=== PATIENT | male | born 1950 | race Caucasian/White ===

== ENCOUNTER 2020-11-06 06:25 | Day surgery (SDC) | payer SELFPAY ==
[~2020-11-06] VITALS: Ht 167.6 cm; Wt 59.0 kg
[~2020-11-06 06:25] MED LIST: KEFLEX500 MG PO; NORCO 5-325 TA1 EACH PO
--- NOTE | 2020-11-06 08:43 | NUR ---
11/06/20 0843 Malcolm Tang SHALLOW AND DEEP SUCTION USED DURING REPORT WITH COURTESY CLERK AT BEDSIDE. REORIENTING PT TO TIME AND SITUATION AT 0843.
--- NOTE | 2020-11-06 09:27 | NUR ---
0915: PT ARRIVES BACK TO UNIT ROOM 7 VIA STRETCHER. AWAKE AND ORIENTED ON ARRIVAL. ANSWERS QUESTIONS APPROPRIATELY. VSS, RESP EVEN AND UNLABORED. DENIES PAIN AND NAUSEA AT THIS TIME. DRESSING C/D/I. ICE WATER AND CRACKERS PROVIDED. POC DISCUSSED AND PT AGREEABLE. NO NEEDS VOICED AT THIS TIME. CALL LIGHT WITHIN REACH
--- NOTE | 2020-11-06 10:49 | NUR ---
PATIENT UP TO BATHROOM, VOIDED WELL. STATED " I WANT TO GET OUT OF HERE SOON I CAN". DRESSING TO RIGHT ARM C/D/I WITH ICE IN PLACE. SET PATIENT UP FOR OUTPATIENT WOUND CARE TO BE DAILY NEXT WEEK. PATIENT AGREED ON 1000 FOR DRESSING CHANGE. PROVIDED PATIENT WITH DISCHARGE INSTRUCTION, ANSWERED QUESTIONS AND CONCERNS. PATIENT AMBULATED TO FRONT, WITH STAFF. APPEARED STEADY ON FEET.
--- NOTE | 2020-11-06 15:30 | OR ---
[facility] [address] [place], [place] [address] Signed DATE OF OPERATION: 11/06/2020 SURGEON: Nba Nichole MD PREOPERATIVE DIAGNOSES: 1. 6 x 7 cm circular necrotic malodorous mass, right lateral arm. 2. History of basal cell carcinoma of right chest wall (4.5 x 16 cm, 2009). POSTOPERATIVE DIAGNOSES: 1. 6 x 7 cm circular necrotic malodorous mass, right lateral arm. 2. History of basal cell carcinoma of right chest wall (4.5 x 16 cm, 2009). PROCEDURE: Excision of right lateral arm skin lesion. ESTIMATED BLOOD LOSS: None. INDICATIONS: Kenny is a 70-year-old gentleman, who is a retired packaging manager, who lives in [place], [place]. He went to a healthcare network pricing consultant back in 2009 for a very large basal cell carcinoma over the right chest wall. I had excised that for him back in 2009. It measured 4.5 x 16 cm. He has healed up well from that surgery. He then came back to my office with a large necrotic malodorous lesion on the lateral aspect of his right arm. He currently has no primary care provider. Although, he has been accepted to a primary care provider here in town, he is yet to see him. He is planning on doing that here in a few weeks. On his arm, he has noticed that lesion for at least one year. He continues to smoke. His albumin is slightly low at 3.4. His skin is quite thin as well particularly on his forearms. In the office, I explained to Kenny there was not enough skin to bring that together primarily. This would have to be excised skin grafted. We thought we do it on the same day. However given our current findings as described above, we did not think he would take a skin graft to any significant degree. We therefore decided to excise the lesion today for clear margins and then plan on the wound care for 7-14 days. After that, we can skin graft the area and expect a much better take of the skin graft. We wound care nurses in our day surgery area just prior to surgery. I explained to Kenny the large circular incision with 1 cm margins that will hopefully be clear at pathologic review. He is aware that we may have to excise additional margin. He understands the wound care that we have described in detail. He knows there is risk to that surgery including, but not limited to bleeding, infection, scarring, change in contour of the skin as well as possible need for additional excision and skin grafting. Electronically Signed By: NBA NICHOLE MD 11/06/20 1530 PATIENT NAME: KENNY KULKARNI OPERATIVE REPORT DATE OF : 46 REPORT #: [id number] PHYSICIAN: NBA NICHOLE MD PCP: NO PRIMARY CARE PHYSICIAN REPORT IS CONFIDENTIAL AND NOT TO BE RELEASED WITHOUT AUTHORIZATION [facility] [address] [place], [place] [address] Signed He had expressed understanding and wished to proceed. PROCEDURE NOTE: I had met Kenny in the preop area. We marked the lesion appropriately. After this, he was taken to the operating room and placed in supine position under general endotracheal tube anesthesia. He was given preoperative antibiotics along with subcutaneous heparin. SCDs were utilized. His right upper extremity was prepped and draped in usual sterile fashion all the way out to the fingertips. We used our 15 blade knife to make a circular incision around his circular lesion with 1 cm of skin. We injected local anesthetic in and around the lesion to help with pain control and bleeding. We then used the cautery to very carefully excise the lesion full-thickness right down to the muscle. He has very little in the way of adipose tissue. The center of the tumor was adherent to the muscle about 2 cm in length and about a cm wide. That fascia was excised to expose the muscle underneath. After this, additional anesthetic was injected into the muscle. The wound was irrigated with warm antibiotic saline solution. We covered the wound with two layers of Adaptic along with silver impregnated gauze, covered by dry 4 x 4 gauze, dry 4 inch Kerlix wrap and then, a 4-inch Steve wrap over top of that. After this, Kenny was awakened from his anesthesia, extubated in the OR, and taken to the recovery room in stable condition. Nba Nichole MD ALB/MODL /[id number] cc: MD Nba Villanueva MD Copies: ANT BRYANT DMD, ANDREW L MD ~ Electronically Signed By: NBA NICHOLE MD 11/06/20 1530 PATIENT NAME: KENNY KULKARNI OPERATIVE REPORT DATE OF : 46 REPORT #: [id number] PHYSICIAN: NBA NICHOLE MD PCP: NO PRIMARY CARE PHYSICIAN REPORT IS CONFIDENTIAL AND NOT TO BE RELEASED WITHOUT AUTHORIZATION
--- NOTE | 2020-11-10 13:24 | PATH ---
[facility] [address] [place], [place] [address] Signed SPECIMEN(S): A RIGHT ARM SKIN LESION SPECIMEN SOURCE: A. RIGHT ARM SKIN LESION CLINICAL HISTORY: Skin lesion. Neoplasm. History of basal cell carcinoma (chest). Long stitch lou lateral, short stitch proximal, double stitch medial. FINAL PATHOLOGIC DIAGNOSIS: Skin, right arm, excision: - Squamous cell carcinoma, extending to the deep surgical margin centrally. - Peripheral margins appear uninvolved by carcinoma. BRP:vlg:[id number] MICROSCOPIC EXAMINATION: Histologic sections of all submitted blocks are examined by light microscopy. These findings, together with the gross examination, support the pathologic diagnosis. GROSS DESCRIPTION: The specimen, labeled "VINCENT, Deja," and designated on the requisition "neoplasm right arm, history basal cell carcinoma (chest), long stitch lou lateral, short stitch proximal, double medial," is received in formalin and consists of a garg, 7.3 x 6.7 x 1.1 cm skin segment that is oriented with a long suture, a short suture, and a double suture. For the purpose of this dictation, the single short suture is arbitrarily designated 12 o'clock, the double sutures is arbitrarily designated 3 o'clock, and the single long suture is arbitrarily designated 9 o'clock. The specimen is inked as follows: 12 clock-3 o'clock = blue; 3 o'clock-6 o'clock = red; 6 o'clock-9 o'clock = green; 9 o'clock-12 o'clock = black. On the skin surface is an ill-defined, fungating, garg to allison, polypoid, 7.2 x 6.4 x 0.8 cm, friable lesion that is 0.4 cm from the nearest peripheral skin margin, 3 o'clock. The specimen is sectioned from 12 o'clock to 6 o'clock into 16 slices. The lesion grossly appears to invade through the dermis into the subcutaneous tissue up to 0.7 cm. The lesion grossly appears to involve the blue inked, and green inked, and red inked margins. The lesion is 0.2 cm from the black inked margin. The scant amount of remaining subcutaneous tissue is comprised PATIENT NAME: KENNY KULKARNI PATHOLOGY DATE OF : 46 REPORT #: [id number] PHYSICIAN: KEELEY CONLEY PCP: NO PRIMARY CARE PHYSICIAN REPORT IS CONFIDENTIAL AND NOT TO BE RELEASED WITHOUT AUTHORIZATION [facility] [address] [place], [place] [address] Signed of yellow, grossly unremarkable tissue. An additional discrete mass of lesion is not grossly identified. Represented sections are submitted as follows: A1-A2 12 o'clock end perpendicularly sections (slice 1) A3 lesion to black ink margin (slice 6) A4 lesion to nearest peripheral skin margin, 3 o'clock (slice 8) A5 lesion to green inked and blue inked margins (slice 8) A6 lesion to red inked margin (slice 13) A7-A8 6 o'clock end perpendicularly sectioned (slice 16) AI (under the direct supervision of a pathologist) The Gross Description was prepared using a voice recognition system. The report was reviewed for accuracy; however, sound-alike word errors, addition and/or deletions may occur. If there is any question about this report, please contact Client Services. PERFORMING LABORATORY: The technical component was performed by [facility], [address] [place] [id number] (Exploitation Analyst: Rupali Avila MD; CLIA# [id number]). The professional interpretation was performed by [facility], [facility], [address] [place] [address]. Diagnostician: Malick Wilkerson MD Pathologist Electronically Signed 11/10/2020 Copies: ~ PATIENT NAME: KENNY KULKARNI PATHOLOGY DATE OF : 46 REPORT #: [id number] PHYSICIAN: [employer] PATHOLOGY PCP: NO PRIMARY CARE PHYSICIAN REPORT IS CONFIDENTIAL AND NOT TO BE RELEASED WITHOUT AUTHORIZATION
== END 2020-11-06 10:30 | disposition home or self-care (01) ==
LOC: DS 06:25
PROVIDERS: ATTEND Colon & Rectal Surgery
PROC: 0KB70ZZ Excision of Right Upper Arm Muscle, Open Approach (ICD-10-PCS; principal; 2020-11-06 06:45)
DX: C44.622 Squamous cell carcinoma of skin of right upper limb, including shoulder (principal); F17.210 Nicotine dependence, cigarettes, uncomplicated; Z85.828 Personal history of other malignant neoplasm of skin
CPT/HCPCS: 00400; J0690; J1644; J2001; J2250; J2704; J7040; J7121

== ENCOUNTER 2020-11-18 05:35 | Day surgery (SDC) | payer SELFPAY ==
[~2020-11-18] VITALS: Ht 167.6 cm; Wt 59.0 kg
--- NOTE | 2020-11-18 06:02 | NUR ---
Covid swab done to both nares.
--- NOTE | 2020-11-18 10:03 | NUR ---
11/18/20 Darren3 Aaliyah Gregory 0956-PATIENT ARRIVED TO PACU ON 6L MASK RR EVEN NONAROUSABLE. IVF INFUSING. ST. DRESSING TO RIGHT ARM CDI WITH KRISTY WRAP. RIGHT THIGH HAS OPSITE IN PLACE AND DRAINAGE UNDERNEATH DRESSING. 0958-PATIENT AROUSING TO VERBAL STIMULI SLIGHTLY OPENING EYES AND COUGHING NONPRODUCTIVE. PATIENT REMAINS VERY DROWSY NOT FOLLOWING COMMANDS. 6L MASK RR EVEN
--- NOTE | 2020-11-18 10:45 | NUR ---
1035: PT ARRIVES TO DS RM 4 FROM PACU DROWSY. PT AROUSES TO VERBAL STIMULATION AND IS ABLE TO ANSWER QUESTIONS APPROPRIATELY. PT DENIES PAIN STATES A "BURNING" SENSATION IN RIGHT UPPER THIGH AND RATES 1-2/10 WHEN ASKED. PT DENIES NAUSEA AND TAKES SMALL SIPS OF WATER. DC CRITERIA EXPLAINED TO PT. CALL LIGHT WITHIN REACH, ENCOURAGED TO USE WITH ANY NEEDS. PT PROVIDED PUDDING.
[2020-11-18] MEDS ORDERED: HYDROCODON-ACE1 EAC8 PO (11:22)
--- NOTE | 2020-11-18 11:35 | NUR ---
[id number]: PT RESTING IN BED AWAKE, TOLERATES WATER AND PUDDING WITH NO COMPLAINTS OF NAUSEA. PT ASKS, "WHEN CAN I GET DRESSED?" PT ENCOURAGED TO USE RESTROOM PRIOR TO DC. PT UP TO SIDE OF BED WITH RN ASSIST, DENIES ANY DIZZINESS OR NAUSEA WITH POSITION CHANGE. PT AMBULATES TO BATHROOM WITH STEADY GAIT, RN ASSIST. PT ABLE TO VOID APPROX 350 MLS CONCENTRATED URINE WITH NO PROBLEMS. PT BACK TO DS RM 4 TO GET DRESSED, REQUESTS IV BE REMOVED AT THIS TIME. PT SAFE RIDE HOME CONTACTED AND PT ENCOURAGED TO OPEN CURTAIN WHEN FINISHED. 1150: PT OPENS CURTAIN AND THIS RN VERBALLY EXPLAINS DC INSTRUCTIONS. PT VERBALIZES AN UNDERSTANDING OF DC INSTRUCTIONS AND STATES, "I PROBABLY WON'T FILL THAT PRESCRIPTION, I ALREADY HAVE SOME OF THAT MEDICATION AT HOME." PT PROVIDED HARD SCRIPT JUST IN CASE NEEDED. PT DC VIA WC TO FRONT ENTRANCE WHERE FRIEND IS WAITING IN PERSONAL VEHICLE TO HOME.
--- NOTE | 2020-11-18 14:58 | OR ---
[facility] [address] [place], [place] [address] Signed DATE OF OPERATION: 11/18/2020 SURGEON: Nba Nichole MD PREOPERATIVE DIAGNOSIS: Status post excision right squamous cell carcinoma lateral arm (9.5 x 7.5 cm, 71.25 cm2). POSTOPERATIVE DIAGNOSIS: Status post excision right squamous cell carcinoma lateral arm (9.5 x 7.5 cm, 71.25 cm2). PROCEDURE: Split-thickness skin graft, right arm with right thigh being the donor site. ESTIMATED BLOOD LOSS: None. INDICATIONS: Kenny is a 70-year-old gentleman who I have known for quite some time. I removed a large basal cell carcinoma of his right chest requiring a 4.5 x 16 cm incision. That had been closed primarily. 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 Consequently, he has been out in the sun. After helping him with a basal cell carcinoma on his chest, we recommended he see one of our dermatologists. He has failed to do that. He returned with a very large necrotic foul-smelling tumor on the right lateral aspect of his arm. We took him to the operating room and excised that for clear margin circumferentially. The deep margin, we took the fascia off the muscle in that margin came back positive, but I think the muscle itself will be fine. We could easily see that spot in the center of the wound as he has filled in with granulation tissue last week or so. He has been working closely with our wound care nurses and is now ready for skin grafting. He continues to be a heavy smoker. He is quite thin and has tobacco stains on his hand and his mustache. I met with him yesterday in the office and we looked at that wound together. We therefore brought him into the operating room today for his skin grafting. I have reviewed skin grafting with him in detail. He understands the donor site would be much more painful than the graft site. We will fenestrate the graft, so we will not collect fluid underneath. He is very familiar with the dressing on his arm and he does have to keep that dry. He will have dry plastic occlusive dressing on his thigh, he can certainly wash gently over that area with soap and water. If that dressing would come loose, he can certainly remove it and apply standard Vaseline antibiotic ointment over that donor site . He understands this will be a day surgery. There is risk to that surgery including, but not limited to bleeding, infection, scarring and change in contour of the skin as well as possible need for additional skin grafting or Electronically Signed By: NBA NICHOLE MD 11/18/20 1458 PATIENT NAME: KENNY KULKARNI OPERATIVE REPORT DATE OF : 46 REPORT #: [id number] PHYSICIAN: NBA NICHOLE MD PCP: ANT BRYANT MD REPORT IS CONFIDENTIAL AND NOT TO BE RELEASED WITHOUT AUTHORIZATION [facility] [address] [place] [id number] Signed treatment based on his positive margin. He expressed understanding and wished to proceed. PROCEDURE NOTE: I met with Kenny in our preop area. We reviewed the above together. I marked his right arm appropriately after he was in agreement. We then went to the operating room and he was placed in the supine position under general endotracheal tube anesthesia. He was given preoperative antibiotics along with subcutaneous heparin. SCDs were utilized. He was prepped and draped in the usual sterile fashion. We measured out the wound bed at 9.5 x 7.5 cm. This equals 71.25 cm2. We then marked out an appropriate area on the proximal right thigh. We used our 10 blade knife to set the dermatome thickness. The skin graft was then removed from the right thigh and epinephrine-soaked saline gauze was placed over that area. We fenestrated the graft and then placed that over the wound. It was held in place circumferentially with interrupted 2-0 chromic sutures. Two chromic sutures were placed in the center of the graft to help keep in place. The corners of the graft were trimmed off with the Metzenbaum scissors. Xeroform gauze was placed over this along with 4 x 4 dry gauze and then a 4-inch Kerlix gauze wrap. 3-inch Steve wrap was then placed around this. We then used dry plastic occlusive dressing over his donor site on his right thigh. There was good hemostasis. After this, Kenny was weaned from his anesthesia, extubated in the OR, and taken to the recovery room in stable condition. Nba Nichole MD ALB/MODL /[id number] cc: MD Nba Villanueva MD Copies: ANT BRYANT DMD Electronically Signed By: NBA NICHOLE MD 11/18/20 1458 PATIENT NAME: KENNY KULKARNI OPERATIVE REPORT DATE OF : 46 REPORT #: [id number] PHYSICIAN: NBA NICHOLE MD PCP: ANT BRYANT MD REPORT IS CONFIDENTIAL AND NOT TO BE RELEASED WITHOUT AUTHORIZATION [address] [place], [place] [address] Signed NBA NICHOLE MD ~ Electronically Signed By: NBA NICHOLE MD 11/18/20 1458 PATIENT NAME: KENNY KULKARNI OPERATIVE REPORT DATE OF : 46 REPORT #: [id number] PHYSICIAN: NBA NICHOLE MD PCP: ANT BRYANT MD REPORT IS CONFIDENTIAL AND NOT TO BE RELEASED WITHOUT AUTHORIZATION
== END 2020-11-18 11:55 | disposition home or self-care (01) ==
LOC: DS 05:35 → OPS 05:35 → DSVR 08:30 → EDSTATUS 08:30 → OPS 11:55
PROVIDERS: ATTEND Colon & Rectal Surgery
PROC: 0HRBX74 Replacement of Right Upper Arm Skin with Autologous Tissue Substitute, Partial Thickness, External Approach (ICD-10-PCS; principal; 2020-11-18 08:30)
DX: C44.622 Squamous cell carcinoma of skin of right upper limb, including shoulder (principal); F17.210 Nicotine dependence, cigarettes, uncomplicated; Z20.822 Contact with and (suspected) exposure to COVID-19
CPT/HCPCS: 00400; C9803; J0330; J0690; J1644; J1885; J2001; J2250; J2704; J7121; U0003

== ENCOUNTER 2021-03-21 18:19 | Emergency (ER) | payer OTHER ==
[~2021-03-21] VITALS: Ht 167.6 cm; Wt 59.0 kg
[~2021-03-21 18:19] MED LIST changes: +HYDROCODON-ACE1 EAC8 PO
== END 2021-03-21 21:26 | disposition left against medical advice (07) ==
LOC: ED 18:19
PROC: 0HQ1XZZ Repair Face Skin, External Approach (ICD-10-PCS; principal; 2021-03-21)
DX: S01.81XA Laceration without foreign body of other part of head, initial encounter (principal); F10.129 Alcohol abuse with intoxication, unspecified; F17.200 Nicotine dependence, unspecified, uncomplicated; Y90.6 Blood alcohol level of 120-199 mg/100 ml; W01.198A Fall on same level from slipping, tripping and stumbling with subsequent striking against other object, initial encounter
CPT/HCPCS: 12011; 99284-25; G0480

== ENCOUNTER 2024-02-27 14:50 | Inpatient (IN) | payer MEDICARE ==
[~2024-02-27] VITALS: Ht 167.6 cm; Wt 55.7 kg
--- NOTE | ~2024-02-27 | DS ---
[facility] [address] [place], [place] [address] Draft ADMISSION DATE: 02/27/2024 DISCHARGE DATE: 03/02/2024 REASON FOR ADMISSION: This 73-year-old white man presented to emergency room approximately at 4 p.m., was evaluated by Dr. Hauser with considerable abdominal distention and vague abdominal pain. The patient has been losing weight for a number of months and appeared somewhat cachectic and infirm. He was noted to have a white count of only 9.6 and hematocrit of 36.6 with platelets of 456,000 and a creatinine of 1.48. He underwent a CT scan of the abdomen, which showed considerable amount of intra-abdominal free air. There were diverticula of the sigmoid, but it was not clear exactly the source of the perforated viscus. There was distended small bowel nearly total obstruction in the mid to distal small bowel, which was of uncertain etiology as well. He is admitted for further evaluation and care. PERTINENT PHYSICAL EXAMINATION: GENERAL: Showed a cachectic white man who looks to be chronically debilitated. VITAL SIGNS: Temperature is 97.9, pulse of 102, blood pressure 150/92, O2 saturation 92% on room air. NECK: Trachea is midline. There is no cervical or supraclavicular adenopathy. CHEST: Clear. HEART: Regular without murmur. EKG showed no ischemic changes. HOSPITAL COURSE: Given his extensive intraabdominal free air and uncertainty as to the source of it as well as the obvious small-bowel obstruction he was fluid resuscitated, given broad-spectrum antibiotic of meropenem and taken to operation the night of presentation. Ultimately, found with small bowel obstruction related to a Meckel's diverticulitis separate and distinct from the source of intra-abdominal free air, which was actually a toothpick which had perforated a large broad sigmoid diverticulum. Operation consisted of drainage of pelvic abscess fluid in the region of an intraperitoneal urologic prosthesis (benign with inflatable device) that was placed on January 11 in [place]. Additionally, he underwent a segmental small bowel resection of the Meckel's diverticulum with end-to-end enteroenterostomy as well as partial sigmoid resection in the region of the sigmoid diverticulum using Endo MARVIN stapling device and over-sewing the staple line. His postoperative course was surprisingly unremarkable. A drain was placed in the pelvis and by day of discharge, the pelvic fluid was completely clear with no evidence of purulence or other problem. He was maintained on broad-spectrum antibiotic till the time of discharge with transition to Augmentin 500 mg p.o. b.i.d. planned. PATIENT NAME: KENNY KULKARNI DISCHARGE SUMMARY DATE OF : 46 REPORT #: [id number] PHYSICIAN: JAYDEN BORDEN MD PCP: ANT BRYANT MD REPORT IS CONFIDENTIAL AND NOT TO BE RELEASED WITHOUT AUTHORIZATION [address] [address] [place] At home he will avoid lifting more than 20 pounds for the next four weeks. I will see him in the office in four weeks for followup. [place] remain in place in the midline incision, which will be removed in the office setting. DISCHARGE MEDICATIONS: 1. Will include Tylenol 1000 mg p.o. q.6 hours as needed for pain #30, refill zero. 2. Augmentin 500 mg/125 one tab p.o. b.i.d. #10. DISCHARGE DIAGNOSES: 1. Perforated viscus of sigmoid colon related to a perforating wood toothpick through a large broad-based sigmoid diverticulum status post partial sigmoid colectomy with stapling device and over-sew of defect. 2. Separate and distinct near-total small-bowel obstruction of ileum related to inflamed Meckel's diverticulitis. 3. Generalized inanition and weight loss. 4. History of implant inflatable penile prosthesis with air reservoir within the pelvis rather than extraperitoneal. 5. History of prostate cancer, status post prostatectomy at [facility]. FOLLOWUP PLAN: He will call to see me in the office and follow up in four weeks. MD VIRAL Harden/RAYO /[id number] cc: Dr. Hauser Copies: ~ PATIENT NAME: KENNY KULKARNI DISCHARGE SUMMARY DATE OF : 46 REPORT #: [id number] PHYSICIAN: JAYDEN BORDEN MD PCP: ANT BRYANT MD REPORT IS CONFIDENTIAL AND NOT TO BE RELEASED WITHOUT AUTHORIZATION
[~2024-02-27 14:50] MED LIST changes: +SEVOFLURANE 250 ML BTL INH ONE
[2024-02-27] MEDS ORDERED: ondansetron HCL 4 MG/2 ML VIAL IV ONE (16:00)
[2024-02-27] MEDS ORDERED: HYDROmorphone HCL 1 MG/ML SYR IV PRN ×4 (16:00→23:45)
[2024-02-27] MEDS ORDERED: SODIUM CHLORIDE 0.9% 1,000 ML IV ONE (16:00)
[2024-02-27 16:14] LABS: BASOPHILS 0.1 % (0-2); EOSINOPHILS 0.1 % (0-6); HEMATOCRIT 36.6 % (35.0-50.0); HEMOGLOBIN 12.6 g/dL (12.0-18.0); LYMPHOCYTES 3.8 % (24-44); MCH 32.7 (27-36); MCHC 34.5 g/dl (30-36); MCV 94.6 fl (81-99); MONOCYTES 12.5 % (0-12); NEUTROPHILS 83.5 % (39-80); PLATELET COUNT 456 K/uL (140-440); RBC 3.86 M/ul (4.3-5.7); RDW 13.4 (10.5-15.0)
[2024-02-27 16:42] LABS: ALBUMIN 2.5 g/dL (3.4-5.0); ALBUMIN/GLOBULIN RATIO 0.46 (1.1-2.4); ANION GAP 15.4 (7-21); BILIRUBIN, TOTAL 0.4 ng/dL (0.2-1.0); BUN/CREATININE RATIO 32.43 (6.0-28.6); CALCIUM 9.7 mg/dL (8.5-10.1); CREATININE, SERUM 1.48 mg/dL (0.70-1.30); POTASSIUM 4.4 mmol/L (3.5-5.1); PROTEIN, TOTAL 7.9 g/dL (6.4-8.2)
[2024-02-27] MEDS ORDERED: MEROPENEM 2,000 MG in SODIUM CHLORIDE 0.9% 250 ML IV ONE (17:45)
[2024-02-27] MEDS ORDERED: MEROPENEM 1,000 MG VIAL IV ONE (18:09)
[2024-02-27] MEDS ORDERED: LACTATED RINGER'S 1,000 ML IV SCH ×3 (19:45→23:30)
[2024-02-27] MEDS ORDERED: ondansetron HCL 4 MG/2 ML VIAL IV PRN ×3 (19:45→23:30)
[2024-02-27] MEDS ORDERED: LACTATED RINGER'S 1,000 ML IV ONE ×3 (19:45→21:57)
[2024-02-27] MEDS ORDERED: DEXAMETHASONE SOD PHOS 4 MG/ML VIAL ONE ×2 (19:57→22:26)
[2024-02-27] MEDS ORDERED: KETAMINE in NS 50 MG/5 ML SYR ONE (19:57)
[2024-02-27] MEDS ORDERED: LIDOCAINE HCL 2% 20 MG/ML VIAL INJ ONE (19:57)
[2024-02-27] MEDS ORDERED: ondansetron HCL 4 MG/2 ML VIAL ONE (19:57)
[2024-02-27] MEDS ORDERED: fentaNYL citrate 100 MCG/2 ML VIAL ONE ×2 (19:57→22:27)
[2024-02-27] MEDS ORDERED: propofoL 200 MG/20 ML VIAL ONE (19:57)
[2024-02-27] MEDS ORDERED: ACETAMINOPHEN 1,000 MG/100 ML VIAL ONE (19:57)
[2024-02-27] MEDS ORDERED: SUCCINYLCHOLINE IN 0.9% NACL 200 MG/10 ML SYRINGE ONE (19:57)
[2024-02-27] MEDS ORDERED: ROCURONIUM BROMIDE 50 MG/5 ML SYR ONE ×2 (19:57→21:41)
[2024-02-27] MEDS ORDERED: LIDOCAINE HCL 2% 5 ML SDV ONE (19:57)
[2024-02-27] MEDS ORDERED: Ropivacaine HCl 0.5% 30 ML VIAL ONE (19:58)
[2024-02-27] MEDS ORDERED: SUGAMMADEX SODIUM 200 MG/2 ML ML ONE (19:58)
[2024-02-27] MEDS ORDERED: SODIUM CHLORIDE 0.9% 40 ML IV ONE (19:58)
[2024-02-27] MEDS ORDERED: droPERidol 5 MG/2 ML VIAL IV PRN (20:00)
[2024-02-27] MEDS ORDERED: IBLOOD GLUCOSE TEST STRIP 1 EA TEST VI PRN (20:00)
[2024-02-27] MEDS ORDERED: fentaNYL citrate 50 MCG/ML SDV IV PRN (20:00)
[2024-02-27] MEDS ORDERED: PROCHLORPERAZINE EDISYLATE 10 MG/2 ML VIAL IV PRN (20:00)
[2024-02-27] MEDS ORDERED: NALOXONE HCL 0.4 MG SYR IV PRN (20:00)
[2024-02-27] MEDS ORDERED: FAMOTIDINE 20 MG/ 2 ML VIAL IV SCH (21:00)
[2024-02-27] MEDS ORDERED: MEROPENEM 1,000 MG in SODIUM CHLORIDE 0.9% 100 ML IV SCH (22:00)
[2024-02-27] MEDS ORDERED: LABETALOL HCL 20 MG/4 ML VIAL ONE (23:42)
[2024-02-28] VITALS (18 sets, daily range): BP systolic 109–172; BP diastolic 57–96
--- NOTE | 2024-02-28 00:15 | NUR ---
PATIENT ARRIVED TO THE FLOOR VIA HOSPITAL BED FROM OR. RECEIVED REPORT FROM CAMP HOUSEKEEPER. PATIENT RESPONDS TO NAME. PATIENT IS ON 6L VIA OXYMASK. PATIENT DENIES ANY PAIN OR NAUSEA. PATIENT HAS NG IN PLACE AND IS ON LWIS. PATIENT DENIES ANY NEEDS. CALL LIGHT IN REACH.
--- NOTE | 2024-02-28 00:30 | NUR ---
02/28/24 0030 BRODIE HERNANDEZ 2330 PT ARRIVED TO PACU VIA STREACHER. PT ON 6L OF O2 VIA MASK, PT HAS NATURAL AIRWAY. PT NEEDING POSITIONING ASSISTANCE FOR BRETHING. PT HAS NG TUBE IN PLACE IN LEFT NARE. PT HAS HERMELINDA DRAIN IN RLQ IN ABDOMEN DRAINING SEROSANGUINEOUS FLUID. PT ATTACHED TO ALL MONTIORS. PT REQUIRED SUCTIONINNG IN MOUTH DUE, PINK TINGED SPUTUM SUCTIONED FROM MOUTH. PT NOT RESPONSIVE TO VERBAL OR TACTILE STIMULI. REPORT TAKEN FROM SENIOR C SOFTWARE DEVELOPER, SENIOR C SOFTWARE DEVELOPER AWARE OF BLOOD PRESSURES. WALLACE CATH IN PLACE AND DRAINING. 2341 PT REACTIVE TO VERBAL STIMULI. PT REPORTS NO PAIN AT THIS TIME. SENIOR C SOFTWARE DEVELOPER AT BEDSIDE. PT OXYGEN DIPPED DOWN TO 91% ON 6L O2 VIA FACE MASK. WHEN PT COACHED THROUGH DEEP BREATHING PT OXYGEN BACK UP TO 98% ON 6L O2 VIA MASK. 2347 SENIOR C SOFTWARE DEVELOPER GAVE 5MG OF LABATELOL IV FOR PT BLOOD PRESSURES. 2355 PT BLOOD PRESSURES HAVE COME DOWN SOME. PT REPORTS NO PAIN OR NAUSEA AT THIS TIME. 0015 PT TRANSFERRED TO CCU ROOM 129 VIA STREACHER. REPORT GIVEN TO CCU RN AND CARE TRANSFERRED AT THIS TIME. PT BED PLUGGED IN, CALL LIGHT WITHIN REACH. NG TUBE IN PLACE IN L NARE. WALLACE CATH IN PLACE AND DRAINING. PT ATTACHED TO ALL MONITORS. HERMELINDA DRAIN IN PLACE IN RLQ DRAINING SEROSANGUINEOUS FLUIDS. PT HAS NO QUESTIONS AT THIS TIME. PT BED LOW AND LOCKED AND CALL LIGHT WITHIN REACH.
--- NOTE | 2024-02-28 00:40 | NUR ---
PATIENT IS RESTING IN BED WITH EYES CLOSED, RR 11. PATIENTS OXYGEN TITRATED TO 4L VIA NC. PATIENTS NG TO LWIS. NAD NOTED. CALL LIGHT IN REACH. ADMISSION COMPLETED. ASSESMENT COMPLETED. IV INFUSING PER ORDER. SCDS INUSE. WALLACE DRAINING YELLOW URINE.
--- NOTE | 2024-02-28 01:19 | NUR ---
PATIENTS WALLACE AND VINCENT EMPTIED. PATIENT DENIES ANY PAIN OR NAUSEA. PATIENT TITRATED TO ROOM AIR. PATIENT DENIES ANY NEEDS. CALL LIGHT IN REACH.
--- NOTE | 2024-02-28 01:35 | NUR ---
PATIENT PLACED 2L VIA OXYMASK PER RT. PATIENT IS RESTING IN BED. PATIENT DENIES ANY PAIN OR NAUSEA. PATIENT DENIES ANY NEEDS. CALL LIGHT IN REACH.
--- NOTE | 2024-02-28 01:43 | NUR ---
PATIENT IS RESTING IN BED AND DENIES ANY PAIN OR NAUSEA. PATIENTS NG TO LWIS. WALLACE DRAINING YELLOW URINE. PATIENTS VINCENT HAS NO NEW DRAINAGE. PATIENTS SCHEDULED MEDICATION INFUSING PER ORDER. PATIENT DENIES ANY FURTHER NEEDS. CALL LIGHT IN REACH. SCDS IN USE
[2024-02-28] MEDS ORDERED: ACETAMINOPHEN 1,000 MG/100 ML VIAL IV SCH (02:00)
--- NOTE | 2024-02-28 03:19 | NUR ---
PATIENT IS RESTING IN BED WITH EYES CLOSED, RR 12. NG TO LWIS. WALLACE CLAMPED AT THIS TIME TO COLLECT UA. PATIENTS VINCENT HAS NO NEW DRAINAGE. PATIENT IS ON 2L VIA OXYMASK. NAD NOTED. IV INFUSING PER ORDER. CALL LIGHT IN REACH.
[2024-02-28 04:12] LABS: BILIRUBIN, URINE NEGATIVE (negative); BLOOD/HGB, URINE TRACE-I (Negative); KETONE, URINE NEGATIVE (Negative); LEUK ESTERASE, URINE NEGATIVE (negative); NITRITE, URINE NEGATIVE (negative)
[2024-02-28 04:23] LABS: BACTERIA, URINE RARE /hpf (negative); CRYSTALS, URINE NONE SEEN (0-1+); EPITHELIAL CELLS, URINE SQUAMOUS 1+ /lpf (0-1+); RED BLOOD CELLS, URINE 0-1 /hpf (0-5)
[2024-02-28 04:24] LABS: CASTS, URINE HYALINE 1+ \\lpf; COLLECTION TYPE, URINE CLEAN CATCH; REFLEX CULTURE, URINE No (No)
--- NOTE | 2024-02-28 04:27 | NUR ---
PATIENT IS RESTING IN BED WITH EYES CLOSED, RR 12. NAD NOTED. CALL LIGHT IN REACH.
[2024-02-28 05:36] LABS: EOSINOPHILS 0.1 % (0-6); HEMATOCRIT 33.4 % (35.0-50.0); HEMOGLOBIN 11.4 g/dL (12.0-18.0); LYMPHOCYTES 3.6 % (24-44); MCH 32.4 (27-36); MCHC 34.2 g/dl (30-36); MCV 94.7 fl (81-99); MONOCYTES 8.9 % (0-12); NEUTROPHILS 87.4 % (39-80); PLATELET COUNT 419 K/uL (140-440); RBC 3.52 M/ul (4.3-5.7); RDW 13.4 (10.5-15.0)
[2024-02-28] MEDS ORDERED: MEROPENEM 1,000 MG VIAL IV ONE (05:45)
--- NOTE | 2024-02-28 05:48 | NUR ---
PATIENT ASSISTED TO REPOSITION IN BED. PATIENT REPORTS NAUSEA, PRN MEDICATION GIVEN PER ORDER. PATIENT DENIES ANY PAIN. NG EMPTIED. VINCENT EMPTIED. WALLACE EMPTIED. INTAKE AND OUTPUT RECORDED. PATIENT REMAINS ON 2L VIA OXYMASK. PATIENT DENIES ANY SOB. PATIENT HAS NG TO LWIS. MORNING ABX INFUSING PER ORDER. PATIENT DRESSING ON MD AGUILAR IS C/D/I. PATIENT PROVIDED MOUTH SWABS. PATIENT DENIES ANY FURTHER NEEDS. CALL CHRISTINE IN REACH. IV INFUSING PER ORDE.R
[2024-02-28 05:49] LABS: ANION GAP 11.9 (7-21); BUN/CREATININE RATIO 30.46 (6.0-28.6); CALCIUM 8.2 mg/dL (8.5-10.1); CREATININE, SERUM 1.28 mg/dL (0.70-1.30); POTASSIUM 4.9 mmol/L (3.5-5.1)
[2024-02-28] MEDS ORDERED: MEROPENEM 1,000 MG in SODIUM CHLORIDE 0.9% 100 ML IV SCH (06:00)
--- NOTE | 2024-02-28 06:24 | NUR ---
AM IV ABX INFUSING PER ORDER. PATIENT DENIES ANY PAIN OR NAUSEA. PATIENT IS NOW ON RA. PATIENTS NG TO LWIS. PATIENT HAS SCDS IN PLACE. VINCENT NO NEW DRAINAGE. PATIENT HAS WALLACE DRAINING YELLOW URINE. NG IN PLACE. NG DRESSING REPLACE. PATIENT DENIES ANY FURTHER NEEDS. CALL LIGHT IN REACH. IV INFUSING PER ORDER.
[2024-02-28] MEDS ORDERED: FAMOTIDINE 20 MG/ 2 ML VIAL IV SCH (09:00)
--- NOTE | 2024-02-28 09:04 | NUR ---
rt and rn in room, pt 100% on 2l nc - room air trial. pt with course lungs sounds and hx of smoking, IS to bedside and taught to pt by rn, enc use.
--- NOTE | 2024-02-28 09:55 | NUR ---
dr carlin here at bedside with nurse. pt reports his prostetic was placed recently in nov. this year.
--- NOTE | 2024-02-28 10:54 | NUR ---
PATIENT ALERT AND ORIENTED IN BED. HAS AN NG TUBE IN PLACE. HE LIVES ALONE IN SINGLE LEVEL HOUSE, 3 STEPS TO GET INSIDE. HE HAS NO ISSUES WITH STEPS. HE HAS NO DME. PATIENT DRIVES AT BASELINE. FRIEND, SANDOVAL, BROUGHT HIM INTO ER LAST NIGHT. HE HAS NO FINANCIAL CONCERNS AT THIS TIME. HE STATES IF FINANCIAL ISSUES COME UP, HE CALLS SANDOVAL. STATES HE HAS MEDICARE PART A ONLY FOR INSURANCE. MESSAGE LEFT FOR BLANCA MACKEY TO VERIFY IF PATIENT IS ELIGIBLE FOR MEDICAID.
--- NOTE | 2024-02-28 11:20 | NUR ---
ngt removed pt happy and tolerated well. ok having sm amt of ice chips. dresg to abd wnl and joseph emptied for 5 ml. san emptied 150 ml yellow urine. pt denies pain at this time. oxygen 94% 2l nc. pt reports smokes at baseline. course lung sounds and cough noted.
--- NOTE | 2024-02-28 11:40 | HP ---
[facility] [address], [place] [address] Signed ADMISSION DATE: 02/27/2024 PROBLEM: Extensive intraabdominal free air, perforated viscus. HISTORY OF PRESENT ILLNESS: This 73-year-old white man presented to the emergency room at approximately 4:00 p.m. and evaluated by Dr. Hauser with considerable abdominal distention and some vague abdominal pain. The patient has been losing weight for a number of months and appeared quite cachectic and infirm. LABORATORY STUDIES: Performed showed a white count of only 9.6, hematocrit of 36.6, platelets of 456,000 with a Chem profile notable for a low chloride of 97, a creatinine of 1.48 and a glucose of 147. A lactic acid, which was normal at 0.8 and liver enzymes, which appeared to be normal overall. His urinalysis is pending. He underwent a CT scan of the abdomen, which showed a considerable amount of intra-abdominal free air. There were diverticula of the sigmoid colon, but it was not clear exactly the source of the perforated viscus. There was distended small bowel and consideration of possible small bowel obstruction as well. The chest showed no neoplasm or other similar abnormality. The patient has had vague abdominal symptoms for months, then worsening in the past few weeks and particularly worse today. He was brought to the emergency room by friends. He tells me he underwent penile implant procedure in January in [place]. He had undergone prostatectomy at [facility] in the past few years. SOCIAL HISTORY: He smokes 1/4 pack of cigarettes daily, but does not drink alcohol particularly. He denies any drug use. He lives on [address] and now lives alone. His girlfriend recently left him. He has not seen a doctor in this area " for years". He has a daughter who lives elsewhere. 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 REVIEW OF SYSTEMS: He denies any dysphagia or hematemesis. He has had no blood per rectum. Denies any flank pain. He has not used the penile prosthesis device and does not know if it works. PHYSICAL EXAMINATION: GENERAL: A cachectic white man who looks to be chronically debilitated. VITAL SIGNS: Temperature at presentation was 97.9, pulse 102, blood pressure 150/92, O2 saturations 92% on room air. NECK: Trachea is midline. I see no cervical or supraclavicular adenopathy. Electronically Signed By: JAYDEN BORDEN MD 02/28/24 1140 PATIENT NAME: KENNY KULKARNI HISTORY AND PHYSICAL DATE OF : 46 REPORT #: [id number] PHYSICIAN: JAYDEN BORDEN MD PCP: ANT BRYANT MD REPORT IS CONFIDENTIAL AND NOT TO BE RELEASED WITHOUT AUTHORIZATION [facility] [address], [place] [address] Signed CHEST: Relatively clear. HEART: Regular. An EKG shows no ischemic changes. Heart rate is 110. ABDOMEN: Distended. There is a supraumbilical incision related to prior prostate resection performed in [place], [place] in the past few years. His abdominal distention is noted and there is mild tenderness throughout the abdomen dominantly in the left lower quadrant. EXTREMITIES: Show no clubbing, cyanosis, or edema. ASSESSMENT AND PLAN: There was a reasonable probability that his considerable intraabdominal free air is related to perforated viscus of the sigmoid colon from diverticular disease, so the possibility of malignancy has to be considered as well. He denies any prior family history of colon cancer or other cancers. The patient himself has had prostate cancer and has had no known sequela from that. I have recommended ongoing fluid resuscitation, antibiotic administration of meropenem, anticipating laparotomy and remedy of the problem today. This may include a bowel resection or possible sigmoid or colonic resection in someway. It is possible that he will require an ostomy. If a primary resection of the colon is needed, an anastomosis might be possible, but if so, a diverting loop ileostomy would be recommended as well. I discussed all this with him in detail. MD VIRAL Harden/FRANKIEL /[id number] cc: Dr. Beltran [facility] Copies: ~ Electronically Signed By: JAYDEN BORDEN MD 02/28/24 1140 PATIENT NAME: KENNY KULKARNI HISTORY AND PHYSICAL DATE OF : 46 REPORT #: [id number] PHYSICIAN: JAYDEN BORDEN MD PCP: ANT BRYANT MD REPORT IS CONFIDENTIAL AND NOT TO BE RELEASED WITHOUT AUTHORIZATION
--- NOTE | 2024-02-28 11:40 | OR ---
[facility] [address] [place], [place] [address] Signed DATE OF OPERATION: 02/27/2024 SURGEON: Jayden Borden MD PREOPERATIVE DIAGNOSES: 1. Extensive free intraperitoneal air with abdominal tenderness. 2. Small bowel obstruction. 3. History of urologic prosthesis (penile implant device with air reservoir). POSTOPERATIVE DIAGNOSES: 1. Pelvic abscess in region of intraperitoneal urologic prosthesis (penile inflatable device). 2. Meckel's diverticulitis with small bowel obstruction. 3. Perforated sigmoid colon in the region of sigmoid diverticulum from penetrating wood toothpick. PROCEDURE: 1. Exploration of the abdomen and drainage of pelvic abscess fluid and pelvic drain placement. 2. Removal of perforating toothpick from sigmoid diverticulum. 3. Excision of portion of sigmoid colon wall (sigmoid diverticulum) by staple resection and silk oversewing. 4. Segmental small bowel resection of Meckel's diverticulum with end-to-end hand-sewn anastomosis. SECTION GANG WORKER: Armond Borden MD ANESTHESIA: General endotracheal, Lennox Isabel, BUSINESS ANALYST PROJECT MANAGER and postoperative bilateral TAP block. DRAIN: 7 mm flat Marc at pelvis. INDICATIONS: This 73-year-old white man has a considerably cachectic appearance and has been feeling ill for the past several months with poor oral intake. He presented to the emergency room, was evaluated by Dr. Hauser. He was found to have a somewhat elevated white count and massive intraabdominal free air and mild inflammatory change in the region of Electronically Signed By: JAYDEN BORDEN MD 02/28/24 1140 PATIENT NAME: KENNY KULKARNI OPERATIVE REPORT DATE OF : 46 REPORT #: [id number] PHYSICIAN: JAYDEN BORDEN MD PCP: ANT BRYANT MD REPORT IS CONFIDENTIAL AND NOT TO BE RELEASED WITHOUT AUTHORIZATION [facility] [address] [place], [place] [address] Signed the sigmoid. Additionally, he had massive distention of the small bowel and small bowel obstruction. Of note, the patient has prior history of prostatectomy for prostate cancer as well as placement of a penile prosthesis and inflatable balloon device placed in [place]-- in January of this year. He has been fluid resuscitated, given intravenous antibiotic meropenem and now to undergo abdominal exploration and remedy of the problems. He understands the risk of bleeding, infection, need for possible ostomy, and other unforeseen complications. FINDINGS: He had an abscess like material in the pelvis with turbid fluid and mucoid fibrinous peel in the pelvis. Unexpected was a plastic bladder-like prosthesis related to penile implant. The free air was ultimately found related to perforation of a relatively large sigmoid diverticulum with a wood toothpick having transgressed the diverticulum. Independent (though possibly related) was the finding of a Meckel's diverticulum as a transition point for small bowel obstruction likely an inflammatory Meckel's diverticulitis causing the obstruction. Segmental resection of the Meckel's diverticulum with end-to-end and hand-sewn anastomosis was accomplished as well as drainage of pelvic abscess, irrigation, placement of drain and resection of the perforated colonic diverticulum. The gallbladder was normal. The appendix was secondarily inflamed, but not a primary problem. The small bowel, though massively distended initially was decompressed into the colon and the noted to have no evidence of perforation itself. DESCRIPTION OF PROCEDURE: The patient was brought to the operating room, given a general endotracheal anesthetic. Preoperative antibiotic meropenem had been given. Sequential compression device stockings were used. A Syed catheter was placed. The abdomen was prepared with a chlorhexidine solution after clipping and draped sterilely. The previous supraumbilical midline incision was noted. Incision extended from above the umbilicus to below the umbilicus for an opening. The abdomen was entered without problem. Immediately noted was markedly turbid fluid. Small bowel loops were massively distended. There is a fibrinous peel in the region of the terminal ileum found related to a broad based relatively large Meckel's diverticulum. It had no torsion, but was the focus of proximal bowel distention and a Meckel's diverticulitis was considered likely to cause the obstruction. Careful inspection of Meckel's diverticulum itself showed no sign of perforation. Abscess type fluid was noted in the pelvis including the rim of fibrinopurulent exudate. This was drained with suction. The small bowel was totally explanted from the abdominal cavity, found to be distended all the way to the ligament of Treitz. There is inflammatory fluid in the proximal abdomen as well. There was no Electronically Signed By: JAYDEN BORDEN MD 02/28/24 1140 PATIENT NAME: KENNY KULKARNI OPERATIVE REPORT DATE OF : 46 REPORT #: [id number] PHYSICIAN: JAYDEN BORDEN MD PCP: ANT BRYANT MD REPORT IS CONFIDENTIAL AND NOT TO BE RELEASED WITHOUT AUTHORIZATION [address] [address] Signed evidence of perforated stomach or duodenum. The liver was normal as was the gallbladder, though it was mildly secondarily inflamed. It was deemed advisable to decompress the small bowel to better examine the other intraabdominal contents. The small bowel air was milked from proximal to distal, began at the ligament of Treitz with sequential application of atraumatic bowel clamp ultimately allowing for passage of the air and succus entericus into the right colon. This allowed for good decompression of small bowel. The appendix was examined and found to be normal. Reinspection of the Meckel's diverticulum showed no evidence of perforation to account for the massive pneumoperitoneum. The stomach was a possible source of this. On that basis, the stomach was insufflated with air and submerged under saline, showing no sign of air leakage. The stomach was then decompressed with the nasogastric tube. The small bowel was elevated more out of the pelvis more completely and examination of the pelvis revealed a plastic implement consistent with penile reservoir. Mucopurulent discharge was noted in the area. A thick infected inflammotory rind was noted in the depths of the pelvis. This was suctioned free and irrigated vigorously. Initially it was considered possible that the urologic prosthesis may have caused the infection as its position in the intraperitoneal pelvis is an unusual position for such devices. It was considered likely that the usual position in the space of Retzius was not possible due to prior prostatic resection. Uncertain as to the cause of the massive pneumoperitoneum, further evaluation of the colon in all of its segments was undertaken. There was some inflammatory changes of the sigmoid and it was ultimately found that a wood toothpick had transgressed the sigmoid colon in the anterolateral aspect. The sigmoid colon was freed from its peritoneal attachments at that point. The perforation was through a distinct large sigmoid diverticulum itself. Photographs were taken. The colon was freed more fully, the toothpick was removed and the diverticulum resected with an Endo MARVIN stapling device in continuity with a portion of lateral sigmoid wall without compromise to the lumen. The Staple line was then additionally oversewn with 3-0 silk suture. Copious irrigation was then undertaken in the abdomen and pelvis clearing the turbid fluid. Attention was turned towards the inflammed Meckels diverticulum causing the bowel obstructon. Quite clearly the meckel's diverticulum was the cause of bowel obstruction. Segmental resection was deemed most advisable. The mesentery to the Meckel's diverticulum was incised with electrocautery and sequential application of hemostats was used to secure the vascular pedicles. They were divided and secured with oh silk ties. A MARVIN stapling device was used to transect the small bowel proximal and distal to the inflamed Meckel's diverticulum. Electronically Signed By: JAYDEN BORDEN MD 02/28/24 1140 PATIENT NAME: KENNY KULKARNI OPERATIVE REPORT DATE OF : 46 REPORT #: [id number] PHYSICIAN: JAYDEN BORDEN MD PCP: ANT BRYANT MD REPORT IS CONFIDENTIAL AND NOT TO BE RELEASED WITHOUT AUTHORIZATION [address] [address] Signed An end-to-end hand-sewn enteroenterostomy was then undertaken in a two-layer technique of interrupted 3-0 Vicryl for the mucosal layer and interrupted 3-0 silk for the serosal layer. The mesenteric defect was secured with running 3-0 silk. There appeared to be excellent viability of both proximal and distal segments of the anastomosis and a watertight viable closure was noted. Irrigation of the abdomen was then undertaken once again. Through a right lower quadrant incision a flat Marc drain was placed and secured the skin with nylon suture. It was placed in the depths of the pelvis. Explantation of the urologic device was deemed inadvisable despite the fact there was infected fluid previously noted in the abdomen. The small bowel was replaced in its natural anatomic configuration in the abdominal cavity. The omentum was replaced over it. The midline fascia was reapproximated with running bidirectional #1 PDS suture. Subcutaneous tissue was irrigated and skin was closed with a skin staple device. An Acticoat dressing was applied. The drain was attached to bulb suction. Bilateral TAP blocks were performed by the ops manager for postoperative analgesic benefit. He was extubated and transferred to the recovery room in good condition having suffered no complications. Sponge, needle, and counts reported as correct x3. The operation was prolonged, complicated, and difficult lasting from 8:30-11:30 p.m. MD VIRAL Harden/MODL /[id number] cc: MD Dr. Armond Savage [place], [place] Electronically Signed By: JAYDEN BORDEN MD 02/28/24 1140 PATIENT NAME: KENNY KULKARNI OPERATIVE REPORT DATE OF : 46 REPORT #: [id number] PHYSICIAN: JAYDEN BORDEN MD PCP: ANT BRYANT MD REPORT IS CONFIDENTIAL AND NOT TO BE RELEASED WITHOUT AUTHORIZATION [address] [place], [place] [address] Signed Copies: MARILYN HAUSER MD ~ Electronically Signed By: JAYDEN BORDEN MD 02/28/24 1140 PATIENT NAME: SHADKENNY OPERATIVE REPORT DATE OF : 46 REPORT #: [id number] PHYSICIAN: JAYDEN BORDEN MD PCP: ANT BRYANT MD REPORT IS CONFIDENTIAL AND NOT TO BE RELEASED WITHOUT AUTHORIZATION
--- NOTE | 2024-02-28 12:17 | NUR ---
UR CLINICAL REVIEW: 2 MN FOR VERSALUS-MEET INPT CRITERIA MEDICARE INPT 02/27/24 @ 1940 ORDER MATCHES REG NO AUTH REQUIRED PER MEDICARE GUIDELINES DISCHARGE HOME WHEN STABLE
[2024-02-28] MEDS ORDERED: MEROPENEM 500 MG in SODIUM CHLORIDE 0.9% 100 ML IV SCH (14:00)
--- NOTE | 2024-02-28 14:01 | NUR ---
pt assisted to stand at bedside, skin wnl. call light in reach, linen changed.
--- NOTE | 2024-02-28 14:05 | EKG ---
[facility] [address] [place] [address] Signed Sinus tachycardia Biatrial enlargement Abnormal ECG When compared with ECG of 03-NOV-2020 09:19, Vent. rate has increased BY 48 BPM Confirmed by Nii Ramos MD ([id number]) on 02/28/2024 2:04:55 PM Electronically Signed By: NII RAMOS DO 02/28/24 1405 PATIENT NAME: KENNY KULKARNI Electrocardiogram DATE OF : 46 PHYSICIAN: NII RAMOS DO REPORT #: [id number] REPORT IS CONFIDENTIAL AND NOT TO BE RELEASED WITHOUT AUTHORIZATION
--- NOTE | 2024-02-28 15:13 | NUR ---
report to kiara yates, pt up in chair - all belongings moved and visitor with pt to room 116.
--- NOTE | 2024-02-28 15:20 | NUR ---
RECIEVED PT HANDOFF FROM ADSHA SARAH IN CCU. PT MOVED VIA CHAIR FROM CCU TO MED/SURG ROOM. PT TOLERATED WELL OCCOMPANIED BY HIS BEST FRIENDS . PT LEFT SITTING IN CHAIR WITH CALL LIGHT IN REACH. PT HAS NO CONCERNS AT THIS TIME.
--- NOTE | 2024-02-28 18:40 | NUR ---
PT UP AMBULATING IN HALLS, WENT FROM ONE END OF THE CASTRO TO THE OTHER AND TOLERATED WELL WITH FWW AND 2 PERSON ASSIST. PT DECREASED TO RA, O2 SAT 94-97%. CPOX ON AND SCDS ON. CALL LIGHT WITHIN REACH. PT RESTING IN BED WATCHING TV AFTER WALKING. NO REQUESTS AT THIS TIME.
--- NOTE | 2024-02-28 19:38 | NUR ---
REPORT RECEIVED FROM DAY SHIFT RN. PT LYING IN BED ALERT AND ORIENTED. DENIES NEEDS. WHITE BOARD UPDATED. CALL LIGHT IN REACH. BED ALARM FOR SAFETY.
--- NOTE | 2024-02-28 20:58 | NUR ---
EGG SORTER OBTIANED VITALS AND I&O. PT STATES NO FURTHER NEEDS AT THIS TIME. CALL LIGHT WITHIN REACH AND BED ALARM ON.
--- NOTE | 2024-02-28 22:10 | NUR ---
BED ALARM SOUNDING. PT UP SIDE OF BED WITHOUT ASSIST DUE TO NAUSEA. PRN FOR N/V ADMIN PER EMAR. BACK TO BED. SCHEDULED MEDS ADMIN. EVENING ASSESSMENT COMPLETE. BOWEL TONES ACTIVE. ABD SLIGHTLY DISTENDED AND SOFT. PT DENIES FLATUS. ABD DRESSINGS INTACT WITH OLD DRAINAGE. VINCENT LLQ WITH SCANT AMOUNT SEROSANG DRAINAGE. PT REPORTS ABD PAIN 4/10. PRN FOR PAIN ADMIN PER EMAR. SCD'S AND CPOX IN PLACE. BED ALARM FOR SAFETY. PT DENIES FURTHER NEEDS. CALL LIGHT IN REACH.
--- NOTE | 2024-02-28 23:37 | NUR ---
CPOX ALARMING. ISSUE RESOLVED. PT RESTING IN BED WITH EYES CLOSED. RESPIRATIONS EVEN. SpO2 92% ON RA. HR 90'S. BED ALARM IN PLACE. CALL LIGHT IN REACH.
[2024-02-29] VITALS (9 sets, daily range): BP systolic 131–158; BP diastolic 63–84
--- NOTE | 2024-02-29 02:44 | NUR ---
PT RESTING IN BED WITH EYES CLOSED. RESPIRATIONS EVEN. CPOX IN PLACE. SpO2 LOW 90'S. HR 80'S. WALLACE PATENT WITH YELLOW URINE. IVF INFUSING PER ORDER. BED ALARM IN PLACE. CALL LIGHT IN REACH.
--- NOTE | 2024-02-29 04:31 | NUR ---
PT AWAKE IN BED WATCHING TV. DENIES PAIN OR NAUSEA AT THIS TIME. VS AND I&O OBTAINED. VINCENT RLQ WITH 25 ML YELLOW DRAINAGE. MIDLINE ABD DRESSING INTACT WITH OLD DRAINAGE. BOWEL TONES ACTIVE. ABD SOFT AND SLIGHTLY DISTENDED. PT DENIES FLATUS. WALLACE PATENT WITH QS YELLOW URINE. FEW ICE CHIPS PROVIDED PER REQUEST. PT DENIES FURTHER NEEDS. BED ALARM FOR SAFETY. CALL LIGHT IN REACH.
[2024-02-29 05:58] LABS: BASOPHILS 0.1 % (0-2); EOSINOPHILS 3.8 % (0-6); HEMATOCRIT 28.3 % (35.0-50.0); HEMOGLOBIN 9.7 g/dL (12.0-18.0); MCH 32.7 (27-36); MCHC 34.3 g/dl (30-36); MCV 95.4 fl (81-99); NEUTROPHILS 72.1 % (39-80); PLATELET COUNT 362 K/uL (140-440); RBC 2.96 M/ul (4.3-5.7); RDW 13.4 (10.5-15.0)
[2024-02-29 06:13] LABS: ALBUMIN 1.6 g/dL (3.4-5.0); ALBUMIN/GLOBULIN RATIO 0.46 (1.1-2.4); BILIRUBIN, TOTAL 0.3 ng/dL (0.2-1.0); BUN/CREATININE RATIO 25.53 (6.0-28.6); CALCIUM 8.3 mg/dL (8.5-10.1); CREATININE, SERUM 0.94 mg/dL (0.70-1.30); PROTEIN, TOTAL 5.1 g/dL (6.4-8.2)
--- NOTE | 2024-02-29 06:45 | NUR ---
IV ABX INFUSING PER ORDER. PT REPORTS ABD PAIN 06/20. PRN FOR PAIN ADMIN PER EMAR. PT SpO2 DOWN TO 84% ON RA AFTER PRN. 2L/NC PLACED. SpO2 MID 90'S.
--- NOTE | 2024-02-29 08:07 | NUR ---
MORNING REPORT RECIEVED FROM DASHA LECHUGA. PT LAYING IN BED WITH EYES CLOSED AND CHEST RISE EQUAL BILAT. PT HAS NO CONCERNS AT THIS TIME CALL LIGHT WITHIN REACH AND BED ALARM ON FOR PT SAFETY.
--- NOTE | 2024-02-29 08:50 | NUR ---
PT LAYING IN BED WITH OXYGEN AT 2L CPOX MEASUREING 94 PT RESTING WITH EYES CLOSED AND CHEST RISE EQUAL BILAT. PT HAS NO CONCERNS AT THIS TIME. CALL LIGHT WITHIN REACH.
--- NOTE | 2024-02-29 09:45 | NUR ---
PT SITTING IN BED WATCHING TV WITH NO CONCERNS AT THIS TIME. PT CALL LIGHT WITHIN REACH.
--- NOTE | 2024-02-29 10:25 | NUR ---
RN ROBERTH and Kobi in room doing assessment. Patient reported to them being in pain. BP was high, reported to RN. Breakfast tray removed from room.
--- NOTE | 2024-02-29 10:39 | NUR ---
MED REC COMPLETE
--- NOTE | 2024-02-29 11:51 | NUR ---
PT SITTING IN BED WATCHING TV PT HAS NO CONCERNS AT THIS TIME. PT NC WAS DISPLACED AND RETURNED TO CORRECT POSITIONING AND O2 SAT RETURNED TO 92 ON CPOX WITH 2L O2. PT CALL LIGHT WITHIN REACH.
--- NOTE | 2024-02-29 12:17 | NUR ---
MOVED PT FROM BED TO RECLINER WITH MINIMAL ASSIST. PT ENCOURAGED TO USE IS DUE TO COUGH, PT STATED "GET THAT DAMN THING AWAY FROM ME". CALL LIGHT IN REACH. PT IV INFILTRATED, DC'D BY THIS RN.
--- NOTE | 2024-02-29 13:15 | NUR ---
Spoke with Ayden. He denies c/o or needs. Friends arrive. Pt plans on dc to home when medically clear and his friends will drive him. He has a cane for long distance if needed.
--- NOTE | 2024-02-29 13:30 | NUR ---
PT SITTING IN CHAIR DRINKING FLUIDS. PT HELP INSERT NC INTO NOISE. CPOX READ 92 ON 2L. PT EXHIBITED A LOOSE NON PRODUCTIVE COUGH. PT INSTRUCTED/EDUCATED ON IS AND WAS HESITANT TO USE CONTINUE REINFORCEMENT. PT CALL LIGHT WITHIN REACH.
--- NOTE | 2024-02-29 14:15 | NUR ---
VISITED DURING SPIRITUAL CARE ROUNDS. PT APPEARED TO BE IN OVERALL GOOD SPIRITS, RELAYED INFORMATION FROM CARE TEAM, EXPRESSED HOPE FOR RECOVERY AND TIMELY DISCHARGE. PLANT BIOLOGY PROFESSOR PROVIDED SUPPORTIVE PRESENCE, HOSPITALITY, PRAYER, FACILTIATED INTERACTION WITH THERAPY ANIMAL. PT EXPRESSED GRATITUDE, HOPE.
--- NOTE | 2024-02-29 15:15 | NUR ---
MD BORDEN ENETERED PT ROOM WITH THIS RN AND DASHA HENDRICKS. MD BORDEN EXAMINED PT AND PT HAD NO CONCERNS CONSIDERING CARE. PT THIS RN EMPTIED PT VINCENT DRAIN. PT LEFT IN CHAIR WITH CALL LIGHT WITHIN REACH.
--- NOTE | 2024-02-29 15:25 | NUR ---
Patient got up and walked one lap around [facility] with SENIOR CLIENT ADVISOR using FWW and hooked to 2LNC. Returned to their chair once done. Patient reported not needing oxygen. SpO2 steady at 96% while wearing nasal canula, dropped down to 74% when not wearing it. Charge nurse Flakita notified. Patient was informed to keep NC on and they complied.
--- NOTE | 2024-02-29 17:02 | NUR ---
PT SPOKE WITH MD Rebel BORDEN AND Tristen BORDEN. PT HAD NO CONCERNS AT THIS TIME. PT UPDATED ABOUT PLAN OF CARE AND INFORMED ABOUT CHANGING HIS DIET TO FULL LIQUID PT WAS AGREEABLE. PT REPORTED PASSING GAS WELL. PT HAS CALL LIGHT WITHIN REACH.
--- NOTE | 2024-02-29 18:38 | NUR ---
PT CPOX ALARMING. PT IN RECLINCER TRYING TO STAND TO GET INTO BED. THIS RN ASSISTED TO THE BED, DENIES NEEDS. CALL LIGHT IN REACH.
--- NOTE | 2024-02-29 19:52 | NUR ---
NEW BAG IV FLUIDS SCANNED AND INFUSING. IV SITE WNL. PT AWAKE WATCHING TV. OW IN PLACE CPOX READING 96% O2. WHITE BOARD UPDATED.
--- NOTE | 2024-02-29 19:54 | NUR ---
shift report received from kate rn selene/violetta at bedside. pt awake and resting in bed, midline dressing noted to abd, small amount dry red shadowing noted, joseph drain to rlq, output serous/yellow tinged in color. abd distention noted, more so in rlq, per report, pump from penile implant was manipulated and moved by md in the or. iv site wnl, fluids infusing as directed. no needs or concerns verbalized, call light in reach and bed alarm in place.
--- NOTE | 2024-02-29 22:30 | NUR ---
assessment complete, scheduled meds given along with prn pain medication-see emar. pt reports pain 4/10, joseph drain had 25 mls serous with yellow tinge output. no change to midline or joseph dressing, both wnl. pt denies nausea, bowel tones active. iv site wnl, iv abx infusing as directed. brisk blood return noted. scd's in place, cms intact. call light in reach. 2lnc remains in place and intermittently gets pulled from nares, educated to keep in place, cpox remains at bedside. pt verbalized understanding.
--- NOTE | 2024-02-29 23:18 | NUR ---
rounded on pt, pt resting in bed with eyes closed. on 2lnc, rr even and unlabored. cpox in room. iv abx continues to infuse as directed.
--- NOTE | 2024-03-01 00:25 | NUR ---
rounded on pt, pt resting quietly in bed with eyes closed. 2lnc out of nares, spo2 88%, o2 back in place and spo2 now 92-93%, hr wnl. iv site wnl remains wnl. call light in reach and bed alarm on for safety.
--- NOTE | 2024-03-01 01:27 | NUR ---
rounded on pt, pt resting in bed, 2lnc in place. cpox at bedsde, spo2 93%. rr even and unlabored. bed alarm on and call light in reach.
--- NOTE | 2024-03-01 02:04 | NUR ---
FOCUSED ASSESSMENT COMPLETE, pt STATES, ""YEAH I THINK I WOKE UP NOT HAPPY. I WANNA GO HOME". THERAPEUTIC COMMUNICATION PROVIDED. pt BOOSTED AND REPOSITIONED IN BED, OCCAS NONPRODUCTIVE COUGH NOTED, BREATH SOUNDS CLEAR, SOMEWHAT DIMINISHED IN LOWER LOBES. ENCOURAGED USE OF IS, pt SHOOK HIS HANDS AND STATES, "OH NO I HATE THAT THING", IS LEFT ON BEDSIDE WITHIN REACH OF pt, BENEFITS DISCUSSED WITH pt. IV SITE REMAINS WNL. NO CHANGES TO ABD MIDLINE DRESSING OR VINCENT DRESSING, SMALL AMOUNT OUTPUT NOTED IN KARLY BULB, WILL CONTINUE TO MONITOR. pt DENIES NAUSEA WHEN ASKED, STATING, "I'VE NEVER BEEN NAUSEOUS, I JUST GET PAIN ALL ACROSS HERE", pt HOLDING HANDS OVER ABD. PAIN MEDICATION OFFERED, pt DECLINED AND REPROTS PAIN IS TOLERABLE AT THIS TIME, RATES 5/10 AFTER FURTHER PROBING FROM NURSE. NO ADDITIONAL NEEDS, CALL LIGHT IN REACH.
--- NOTE | 2024-03-01 04:37 | NUR ---
rounded on pt, pt resting in bed, titrated from 2lnc to 1lnc. cpox in place, spo2 90's. iv site wnl, fluids infusing as directed. call light in reach and bed alarm on for safety.
[2024-03-01 05:21] VITALS: BP 151/84
--- NOTE | 2024-03-01 05:57 | NUR ---
MACHINIST 2ND SHIFT OBTAINED VITALS AND OUTPUT. PT WALLACE BAG EMPTIED. PT STATES NO NEEDS AT THIS TIME. CALL LIGHT WITHIN REACH.
--- NOTE | 2024-03-01 06:15 | NUR ---
DASHA YUN TO START SECOND IV D/T UNCERTAIN COMPATABILITY OF IV ABX AND IV FLUIDS. 22G STARTED TO RIGHT FOREARM, pt TOLERATED WELL. THIS RN SPOKE TO HAIM VIA TELEPHARMACY, PER HAIM- MEROPENEM IV COMPATABLE VIA Y-SITE WITH LR, READ BACK TO CONFIRM.
--- NOTE | 2024-03-01 06:44 | NUR ---
scheduled iv abx infusing as directed via iv site to right forearm, iv fluids infusing via site to left ac site. both wnl. pump cleared, additional 135mls output from joseph drain noted, no cahnge in appearance. pt reports passing gas during the shift, encouraged to ambulated and educated on benefits of ambulation, pt shrugs shoulder and states, "whatever" and waves hands like shooing away staff. prn pain medication also given-see emar. bed alarm on and call light in reach. no additional needs or concerns.
--- NOTE | 2024-03-01 07:10 | NUR ---
RN ASKED THIS SUPERVISOR DOG LICENSE OFFICER TO HELP PT WALK AROUND UNIT. SUPERVISOR DOG LICENSE OFFICER ENTERED ROOM AND PT WAS SLEEPING. PT WOKEN UP AND ASKED IF HE WOULD LIKE TO WALK. PT STATED " I WOULD LIKE TO GET A BIT MORE SLEEP AND WALK LATER". RN NOTIFED. PT STATES NO NEEDS AT THIS TIME. CALL LIGHT WITHIN REACH.
--- NOTE | 2024-03-01 07:51 | NUR ---
RECIEVED SHIFT REPORT. PT IS AWAKE IN BED, DISCUSSED WALKING WITH ALUMINUM CAN COLLECTOR, PT WILLING TO DO SO AND SIT IN RECLINER AFTERWARDS. CALL LIGHT IN REACH. BED ALARM ON FOR PT SAFETY.
--- NOTE | 2024-03-01 10:25 | NUR ---
MORNING ASSESSMENT COMPLETE. PT IS IN RECLINER. SPO2 92% ON RA. 07/20 DISCOMFORT IN THE ABD, PRN MEDICATION ADMINISTERED (PER EMAR). DISCUSSED WILL WALK IN A LITTLE WHILE FOR MEDICATION TO REACH PEAK. PT REFUSES TO USE I.S. AT THIS TIME. CALL LIGHT IN REACH.
[2024-03-01 10:47] VITALS: BP 145/97
--- NOTE | 2024-03-01 11:07 | NUR ---
VISITED DURING SPIRITUAL CARE ROUNDS. PT APPEARED TO BE SLEEPING. DID NOT DISTURB. PROVIDED PRAYER.
--- NOTE | 2024-03-01 13:59 | NUR ---
SPO2 93% ON RA AND 98% WHILE AMBULATING AND PER DR SUHA NOE CPOX AND O2. TAKING OFF RT SERVICE. IF O2 IS NEEDED PLEASE CALL RT TO EVALUATE BEFORE PLACING O2.
[2024-03-01 14:38] VITALS: BP 155/82
--- NOTE | 2024-03-01 15:05 | NUR ---
VINCENT tube measured and drained. Yahaira NOE'd by AMY at 1445. Medicine administered by RN ROBERTH. Lunch tray removed.
--- NOTE | 2024-03-01 15:25 | NUR ---
Spoke with pt, He thinks he will be discharged tomorrow. Explained IMM letter. Pt states he does not have Medicare. Updated he has Medicare A. He declines to sign. We then discussed OP therapy for strengthening. Pt states he does not need and declines. He denies any needs to go home.
--- NOTE | 2024-03-01 16:19 | PATH ---
[facility] [address], [place] [address] Signed SPECIMEN(S): A PERFORATED DIVERTICULUM SPECIMEN(S): B OBSTRUCTIVE MECKELS DIVERTICULUM SPECIMEN SOURCE: A. PERFORATED DIVERTICULUM B. OBSTRUCTIVE MECKELS DIVERTICULUM CLINICAL HISTORY: Perforated viscous FINAL PATHOLOGIC DIAGNOSIS: A. Perforated diverticulum: - Fragment of lobulated adipose tissue with acute and chronic inflammation, hemorrhage and focal fibrosis with fat necrosis. - Negative for atypical features. - Negative for bowel wall or epithelial tissue. B. Obstructive Meckel's diverticulum: - Segment of benign small bowel and diverticulum consistent with clinical Meckel's diverticulum. - Negative for atypical features. - Focal acute and chronic serositis. JVR:cml MICROSCOPIC EXAMINATION: Histologic sections of all submitted blocks are examined by light microscopy. These findings, together with the gross examination, support the pathologic diagnosis. GROSS DESCRIPTION: A. The specimen, labeled and designated "Alecia Kulkarni, perforated diverticula per requisition," is received in formalin and consists of A3 by 1.2 x 1 cm portion of yellow lobulated fibroadipose tissue. There is a 3 cm staple line on 1 edge which is inked blue. The outer surface is garg-brown with a moderate amount of purulent material present. The specimen is serially sectioned revealing a yellow lobulated cut surface with no areas of hemorrhage, necrosis, or necrotic debris. Specimen is entirely submitted in cassette A1 and A2. B. The specimen, labeled and designated "Rebel Kulkarni., obstructive Meckel's diverticulum per requisition," is received in formalin and consists of a 5.6 cm in length by 6.2 cm in circumference segment of previously opened bowel. The serosal surface is pink-purple and smooth with PATIENT NAME: KENNY KULKARNI PATHOLOGY DATE OF : 46 REPORT #: [id number] PHYSICIAN: [facility] PCP: ANT BRYANT MD REPORT IS CONFIDENTIAL AND NOT TO BE RELEASED WITHOUT AUTHORIZATION [facility] [address], [place] [address] Signed scant amount of purulent material and attached mesentery. The mucosa is garg-pink with intact mucosal folds. There is a 1.6 x 1.5 x 1.3 cm diverticulum that is 1.3 cm away from the closest unoriented margin. There are no additional masses, lesions, or polyps. Boom Man sections are submitted as follows: Cassette Summary: (B1) unoriented margin closest to diverticulum (B2) unoriented margin (B3) diverticulum AA (under the direct supervision of a pathologist) The Gross Description was prepared using a voice recognition system. The report was reviewed for accuracy; however, sound-alike word errors, addition and/or deletions may occur. If there is any question about this report, please contact Client Services. PERFORMING LABORATORY: Technical component was performed by [facility], [address] [place] [id number] (CLIA# [id number]). Professional interpretation was performed by [facility] - [facility], [address] [place] [id number] (CLIA#: [id number]). Diagnostician: Billy Cortez MD Pathologist Electronically Signed 03/01/2024 Copies: ~ PATIENT NAME: SHADKENNY PATHOLOGY DATE OF : 46 REPORT #: [id number] PHYSICIAN: [facility] PCP: ANT BRYANT MD REPORT IS CONFIDENTIAL AND NOT TO BE RELEASED WITHOUT AUTHORIZATION
--- NOTE | 2024-03-01 17:20 | NUR ---
Patient awake in bed, alert and oriented x3. Patient reports 7/10 abdominal pain. Admin dilaudid 0.5mg iv at this time. Call light within reach.
--- NOTE | 2024-03-01 17:31 | NUR ---
PT RESTING IN BED, EYES CLOSED, BREATHING EVEN AND UNLABORED. CALL LIGHT IN REACH. BED ALARM ON FOR PT SAFETY.
[2024-03-01 17:35] VITALS: BP 159/68
--- NOTE | 2024-03-01 18:55 | NUR ---
DESTIN OSPINA REPORTED TO THIS RN THAT PT HAS NOT URINATED AND WALLACE WAS REMOVED AT 1445. THIS RN BLADDER SCANNED 7ML NOTED IN BLADDER. PT ATTEMPTED TO URINATE WITH NO SUCCESS.
--- NOTE | 2024-03-01 19:03 | NUR ---
Patient has not voided since san removal at 1445. A bladder scan was given and only 7mls were found in their bladder. Patient agreed to try to use their urinal but had no output. DASHA LEPE was informed and went to notify Dr. Gonzalez. Patient tried with the urinal for 10 minutes. Water was given and highly encouraged. Patient then sat up on the edge of their bed to eat their dinner.
--- NOTE | 2024-03-01 19:06 | NUR ---
CALLED Alecia BORDEN AND UPDATED ON PT NOT HAVING URINE OUTPUT. VERBAL ORDER TO GIVE 500ML LR BOLUS.
[2024-03-01] MEDS ORDERED: LACTATED RINGER'S 500 ML IV SCH ×2 (19:15→19:30)
[2024-03-01] MEDS ORDERED: LACTATED RINGER'S 1,000 ML IV PRN (19:30)
--- NOTE | 2024-03-01 19:46 | NUR ---
GOT REPORT FROM DAY SHIFT NURSE. IV BOLUS STARTED PER ORDERS. WILL CONTINUE TO MONITOR URINE OUTPUT. VINCENT DRAIN DRAINED WITH 40 OUT. DRESSING SLIGHT SHADOWING OTHERWISE C/D/I. PAIN HAS DECREASED TO 3. PATIENT DENIES ANY OTHER CARES AT THIS TIME.
--- NOTE | 2024-03-01 21:19 | NUR ---
PT SITTING AT EDGE OF BED CALLING OUT. PT NEEDED TO USE URINAL. PT ASSISTED TO STAND AT BEDSIDE AND USE URINAL. OUTPUT MEASURED AND PT ASSISTED BACK INTO BED. PT REMINDED TO USE CALL LIGHT WHEN HE NEEDED TO GET UP. PT STATES NO FURTHER NEEDS AT THIS TIME. CALL LIGHT WITHIN REACH AND BED ALARM ON.
--- NOTE | 2024-03-01 21:43 | NUR ---
PATIENT GIVEN PAIN MEDICATIONS. PT DID VOID 25. HE IS ENCOURAGED TO TRY FOR ME WE NEED TO GET URINE OUT. PATIENT AGREES TO THIS.
[2024-03-01 21:51] VITALS: BP 139/83
--- NOTE | 2024-03-01 21:55 | NUR ---
PUBLIC RELATIONS MANAGER OBTAIEND VITALS AND I&O. PT STATES NO NEEDS AT THIS TIME. CALL LIGHT WITHIN REACH AND RN IN ROOM.
--- NOTE | 2024-03-01 23:44 | NUR ---
PATIENT CURRENTLY SLEEPING. URINAL DUMPED.
--- NOTE | 2024-03-01 23:46 | NUR ---
PATIENT UP TO TRY TO USE THE URINAL. UNABLE TO VOID AT THIS TIME. BLADDER SCAN DONE, PATIENT HAD 259ML ON SCAN. PATIENT MOVED UP IN BED AND HOB ELEVATED. DENIES ANY OTHER CARES AT THIS TIME.
--- NOTE | 2024-03-02 00:07 | NUR ---
Pt report received from DASHA Carcamo.
--- NOTE | 2024-03-02 01:01 | NUR ---
In with pt for IV pump alarming infusion complete. Disconnected pt IV from pump, flushed IV with 10ml NS, no blood return, but flushes well, no leaking, no redness, no swelling noted. Pt resting with eyes closed, television on, pt breathing is regular, even, and non-labored. Side rails up x3, call light in reach.
--- NOTE | 2024-03-02 02:02 | NUR ---
BED ALARM ANSWERED. PT ON EDGE OF BED STATING THE NEED TO PEE. WATER TREATMENT OPERATOR ASSISTED PT TO STAND AND USE URINAL. PT UNABLE TO VOID. PT BACK IN BED. WATER TREATMENT OPERATOR BLADDER SCANNED PT AT TALENT ACQUISITION SPECIALIST REQUEST. BLADDER SCANNER SHOWED 258ML. TALENT ACQUISITION SPECIALIST NOTIFED. PT STATES NO FURTHER NEEDS AT THIS TIME. CALL LIGHT WITHIN REACH AND BED ALARM ON.
--- NOTE | 2024-03-02 02:51 | NUR ---
PC to Dr. Gonzalez regarding pt's low urine output over the last 8 hours (25ml out, bladder scan of 250ml). Verbal order to administer a 500ml bolus of LR, then reassess.
--- NOTE | 2024-03-02 03:09 | NUR ---
Pt up to edge of bed to attempt to void into urinal. Pt unable to void at this time. IVF running per order (500ml LR bolus). VINCENT emptied of 35ml serous fluid (total of 115 from [id number] hours). Pt back to bed. Call light in reach. Pt states "maybe you should put that urethra tube back in cause at least I could piss". Pt denies further needs at this time.
[2024-03-02 05:09] VITALS: BP 139/83
--- NOTE | 2024-03-02 05:16 | NUR ---
Pt seems impatient with staff but has been using the call light to notify us when he needs to get up to use the toilet.
[2024-03-02 05:29] VITALS: BP 143/89
--- NOTE | 2024-03-02 06:02 | NUR ---
Pt has been up to void x2 in the toilet, unmeasured
--- NOTE | 2024-03-02 06:06 | NUR ---
PT UP TO BR BACK TO BED, REQUESTS PAIN MEDICATION, 0.5MG IV DILAUDID GIVEN PRN 4/10 ABDOMINAL PAIN. PT REMINDED NOT TO GET OUT OF BED ON HIS OWN AND TO PLEASE USE THE CALL LIGHT.
--- NOTE | 2024-03-02 06:21 | NUR ---
VINCENT emptied of 100ml pink tinged serous fluid. Total drainage for this shift ([id number]) is 385ml
--- NOTE | 2024-03-02 07:39 | NUR ---
PT IS RESTING IN BED, EYES CLOSED, BREATHING EVEN AND UNLABORED. CALL LIGHT IN REACH. BED ALARM ON FOR PT SAFETY.
--- NOTE | 2024-03-02 08:43 | NUR ---
DESTIN COSBY REPORTED TO THIS RN THAT PT WAS REFUSING TO GET INTO RECLINER. WALKED TO THE BATHROOM W/O DIFFICUTLY. PT IS NONCOMPLIANT WITH URINATING IN THE URINAL TO MEASURE URINE OUTPUT. HATS PLACED INTO TOLIET TO ENCOURAGE PT TO VOID IN THE HAT TO ASSURE ACCURATE MEASUREMENT.
--- NOTE | 2024-03-02 08:52 | NUR ---
PT WALKED TO AND FROM BATHROOM, WITH USE OF CANE. TOLERATED WELL. DASHA COSBY EMPTIED 80ML OF VINCENT DRAIN, SEROUS IN COLOR, LIGHT PINK TINGED. PT SITTING ON SIDE OF BED EATING BREAKFAST. CALL LIGHT IN REACH.
[2024-03-02 09:41] VITALS: BP 141/84
--- NOTE | 2024-03-02 10:21 | NUR ---
MORNING ASSESSMENT COMPLETE. PT COMPLAINS OF A INTERMINT ABD PAIN. REQUESTING PAIN MEDICATION. ABD SOUNDS ACTIVE BILAT R/L UPPER QUAD. HYPOACTIVE BILAR R/L LOWER QUAD. VINCENT DRAIN INTACT DRAINING SEROUS DRAINAGE WITH PINK TINGED. CALL LIGHT IN REACH.
--- NOTE | 2024-03-02 10:51 | NUR ---
PATIENT WANTED TO SIT ON THE SIDE OF HIS BED FOR BREAKFAST. GOT HIM SOME HOT TEA AND SUGARS.
--- NOTE | 2024-03-02 10:55 | NUR ---
WHEN I WENT BACK IN TO DO HIS MORING VITALS. PATIENT ATE 20% OF HIS BREAKFAST. SO I OFFERED HIM A ENSURE AND HE REFUSED.
--- NOTE | 2024-03-02 11:31 | NUR ---
PT RESTING IN BED, EYES CLOSED, BREATHING EVEN AND UNLABORED. CALL LIGHT IN REACH. BED ALARM ON FOR PATIENT SAFETY.
--- NOTE | 2024-03-02 12:13 | NUR ---
IN ROOM. PT WAS ABLE VOID IN THE HAT. URINE CONCENTRATED. ENCOURAGED PT TO SIT IN THE RECLINER FOR LUNCH. PT STATED "NO I DONT WANT TO, I DONT FEEL LIKE IT TODAY". CONTIUNED TO ENCOURAGE PT, PT CONTIUNED TO REFUSE. CALL LIGHT IN REACH.
[2024-03-02 13:12] VITALS: BP 139/79
[2024-03-02] MEDS ORDERED: TYLENOL EXTRA500 MG PO (13:35)
[2024-03-02] MEDS ORDERED: AUGMENTIN 500-1 EACH PO (13:36)
--- NOTE | 2024-03-02 14:26 | NUR ---
THIS RN ASSISTED PT WITH SHOWER. PT NEEDED LIMITED ASSISTANCE WITH SHOWER AND GETTING DRESSED. PT IS IN RECLINER WAITING FOR RIDE.
== END 2024-03-02 14:50 | disposition home or self-care (01) | DRG 329 ==
LOC: ED 14:50 → CCU 18:27 → MS 18:27 → CCU 02-28 00:16 → MS 02-28 15:10
PROVIDERS: Emergency Medicine; Surgery; ADMIT Surgery; ATTEND Surgery
PROC: 0DB80ZZ Excision of Small Intestine, Open Approach (ICD-10-PCS; principal; 2024-02-28)
PROC: 0DBN0ZZ Excision of Sigmoid Colon, Open Approach (ICD-10-PCS; 2024-02-28)
PROC: 0W9J00Z Drainage of Pelvic Cavity with Drainage Device, Open Approach (ICD-10-PCS; 2024-02-28)
PROC: 0DCN0ZZ Extirpation of Matter from Sigmoid Colon, Open Approach (ICD-10-PCS; 2024-02-28)
DX: Q43.0 Meckel's diverticulum (displaced) (hypertrophic) (principal); K65.1 Peritoneal abscess; K56.609 Unspecified intestinal obstruction, unspecified as to partial versus complete obstruction; F17.210 Nicotine dependence, cigarettes, uncomplicated; K59.00 Constipation, unspecified; R14.0 Abdominal distension (gaseous); T18.4XXA Foreign body in colon, initial encounter; E86.0 Dehydration; Z96.0 Presence of urogenital implants; R63.4 Abnormal weight loss; Z98.890 Other specified postprocedural states; Z90.79 Acquired absence of other genital organ(s); Z85.46 Personal history of malignant neoplasm of prostate
CPT/HCPCS: 00840; 36415; 51798; 71260; 74177; 76942; 80048; 80053; 81001; 83605; 83690; 84484; 85025; 87070; 87075; 87205; 88307; 93005; 93010; 94760; 94762; 97161; 97165; 97530; J0131; J0330; J1100; J1171; J2003; J2185; J2405; J2704; J2795; J3010; J3490; J7030; J7050; J7121; Q9967